=== PATIENT | female | born 2000 | race Hispanic/Latino ===

== ENCOUNTER 2018-01-12 20:59 | Emergency (ER) | payer OTHER ==
[~2018-01-12] VITALS: Ht 162.6 cm; Wt 47.6 kg
[2018-01-12 21:13] VITALS: BP 99/52
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
== END 2018-01-12 22:00 | disposition admitted as inpatient to this hospital (09) ==
LOC: ERH 20:59
DX: M54.2 Cervicalgia (principal); V89.2XXA Person injured in unspecified motor-vehicle accident, traffic, initial encounter